=== PATIENT | female | born 1995 | race Caucasian/White ===

== ENCOUNTER 2019-11-11 14:14 | Emergency (ER) | payer SELFPAY ==
[2019-11-11 14:22] VITALS: BMI 32.1
--- NOTE | 2019-11-11 14:22 | PDOC ---
Rapid Medical Evaluation Chief Complaint: Pain, Acute Time Seen by Provider: 11/11/19 14:19 Medical Evaluation: Allergies Allergy/AdvReac Type Severity Reaction Status Date / Time sumatriptan Allergy Severe Difficulty Verified 11/11/19 13:01 Breathing 11/11/19 14:20 I have performed a brief in-person evaluation of this patient. The patient presents with a chief complaint of: RUQ pain x 3 days. No fevers/ + vomiting. Mom had Fay with her first preg. Pertinent physical exam findings: Gravid uterus. I have ordered the following: US ABd The patient will proceed to the ED for further evaluation. 11/11/19 14:23 Discharge Disposition - Diagnosis RUQ abdominal pain - Discharge Dispostion Condition at time of disposition: Stable - Referrals - Patient Instructions - Post Discharge Activity
--- NOTE | 2019-11-11 15:17 | PDOC ---
History of Present Illness - General Chief Complaint: Pain, Acute Stated Complaint: 32 WK OH/BACK PAIN Time Seen by Provider: 11/11/19 14:19 - History of Present Illness Initial Comments: HPI: 24yo currently 32 weeks with no reported PMH presenting with RUQ abdominal pain, nausea, and vomiting. Patient states she has never had pain like this before. The pain started on Friday, is described as "sharp," radiates to her back, and rated 9/10. Patient also reports nausea/vomiting that is slightly worse than her baseline from . Has had poor po intake today. Denies history of abdominal surgeries. 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 Denies chest pain but endorses pain in the RUQ when she takes a deep breath or moves in a certain way. Without urinary symptoms. Denies heavy alcohol drinking history or use of recreational substances. No fevers or chills. 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 ROS: Constitutional: no fever, no chills HEENT: no throat pain, no dysphagia Cardiovascular: no chest pain, no palpitations Respiratory: no cough, no shortness of breath Gastrointestinal: +abdominal pain, +nausea Genitourinary: no dysuria, no hematuria Musculoskeletal: no myalgia, no arthralgia Skin: no rash, no itching Neurologic: +headache, no weakness PE: General: Awake, alert, and fully oriented, in no acute distress Head: No signs of trauma Eyes: EOMI, sclera anicteric ENT: Moist mucus membranes Neck: Normal ROM, supple Lungs: Lungs clear, Normal breath sounds Cardio: Regular rhythm, S1 and S2 present Abdomen: Soft, gravid uterus. Tender to palpation in RUQ. +guarding, no rebound , no masses Extremities: Normal range of motion, Distal pulses present SKIN: Warm, Dry, normal turgor Neurologic: Cranial nerves II through XII grossly intact. Normal speech ED Course/MDM: DDX including but not limited to acute cholecystitis, gallstones, hepatitis, pancreatitis, UTI, nephrolithiasis Patient cleared from obstetrics standpoint with benign exam from labor and delivery department VS significant for tachycardia Labs US Tylenol Fluids 11/11/19 15:17 US as read by radiology: " EXAM#: TYPE/EXAM: RESULT: [id number] US/ABDOMEN US -LIMITED HISTORY PROVIDED: Right upper quadrant pain. Real time examination of the abdomen demonstrates the following: The gallbladder is normal in size and free of calculi with no evidence of intra or extrahepatic biliary duct dilatation. The liver is enlarged measuring 20.7 cm in craniocaudad dimension. It is mildly hyperechoic in texture consistent with diffuse fatty infiltration. No mass lesions are identified within the liver. Hepatopedal flow is documented within the main portal vein. The pancreas is normal in size and texture with no pancreatic masses identified. There is no evidence of hydronephrosis or acute abnormalities of the right kidney. There is no evidence of AAA. The IVC is patent. IMPRESSION: Hepatomegaly and mild diffuse fatty infiltration of the liver. Reported By: Terence John MD [id number] " 11/11/19 15:59 CBC WBC 9.2 K/mm3 (4.0-10.0) 11/11/19 16:34 RBC 4.05 M/mm3 (3.60-5.2) 11/11/19 16:34 Hgb 11.5 GM/dL (10.7-15.3) 11/11/19 16:34 Hct 34.2 % (32.4-45.2) 11/11/19 16:34 MCV 84.4 fl (80-96) 11/11/19 16:34 MCH 28.5 pg (25.7-33.7) 11/11/19 16:34 MCHC 33.7 g/dl (32.0-36.0) 11/11/19 16:34 RDW 14.7 % (11.6-15.6) 11/11/19 16:34 Plt Count 210 K/MM3 (134-434) 11/11/19 16:34 MPV 7.2 fl (7.5-11.1) L 11/11/19 16:34 Absolute Neuts (auto) 7.3 K/mm3 (1.5-8.0) 11/11/19 16:34 Neutrophils % 79.3 % (42.8-82.8) 11/11/19 16:34 Lymphocytes % 13.8 % (8-40) 11/11/19 16:34 Monocytes % 6.7 % (3.8-10.2) 11/11/19 16:34 Eosinophils % 0.1 % (0-4.5) 11/11/19 16:34 Basophils % 0.1 % (0-2.0) 11/11/19 16:34 Nucleated RBC % 0 % (0-0) 11/11/19 16:34 No leukocytosis or anemia CMP Sodium 139 mmol/L (136-145) 11/11/19 16:34 Potassium 4.0 mmol/L (3.5-5.1) 11/11/19 16:34 Chloride 106 mmol/L (98-107) 11/11/19 16:34 Carbon Dioxide 26 mmol/L (21-32) 11/11/19 16:34 Anion Gap 7 MMOL/L (8-16) L 11/11/19 16:34 BUN 7.5 mg/dL (7-18) 11/11/19 16:34 Creatinine 0.5 mg/dL (0.55-1.3) L 11/11/19 16:34 Est GFR (CKD-EPI)AfAm 159.23 11/11/19 16:34 Est GFR (CKD-EPI)NonAf 137.38 11/11/19 16:34 Random Glucose 83 mg/dL (74-106) 11/11/19 16:34 Calcium 8.3 mg/dL (8.5-10.1) L 11/11/19 16:34 Total Bilirubin 0.3 mg/dL (0.2-1) 11/11/19 16:34 AST 19 U/L (15-37) 11/11/19 16:34 ALT 29 U/L (13-61) 11/11/19 16:34 Alkaline Phosphatase 82 U/L (45-117) 11/11/19 16:34 Total Protein 6.1 g/dl (6.4-8.2) L 11/11/19 16:34 Albumin 2.8 g/dl (3.4-5.0) L 11/11/19 16:34 Lipase 112 U/L (73-393) 11/11/19 16:34 Electrolytes unremarkable Lipase normal No transaminitis Normal ALP Low suspicion for acute abdominal pathology HR improved to 99 Patient requesting to go home To follow up with job foreman and primary care physician Return precautions Stable for discharge 11/11/19 17:43 Past History - Past Medical History Allergies/Adverse Reactions: Allergies Allergy/AdvReac Type Severity Reaction Status Date / Time sumatriptan Allergy Severe Difficulty Verified 11/11/19 14:22 Breathing Home Medications: Ambulatory Orders Vitamins (Sjr) - 1 tab PO DAILY 09/07/19 Acetaminophen [Tylenol .Extra-Strength -] 1 tab PO PRN 11/11/19 COPD: No - Reproductive History Is Patient Now?: Yes (#): 2 Para: 1 Cervical CA: No Dysfunctional Uterine Bleeding: No Ectopic : No Endometrial CA: No Polycystic Ovaries: No Therapeutic (s) & number: No Tubal Ligation: No - Psycho Social/Smoking Cessation Hx Smoking History: Never smoked *Physical Exam - Vital Signs Last Vital Signs Temp Pulse Resp BP Pulse Ox 98.3 F 113 H 18 129/69 98 11/11/19 14:19 11/11/19 14:19 11/11/19 14:19 11/11/19 14:19 11/11/19 14:19 ED Treatment Course - LABORATORY CBC & Chemistry Diagram: 11/11/19 16:34 11/11/19 16:34 Discharge - Discharge Information Problems reviewed: Yes Clinical Impression/Diagnosis: RUQ abdominal pain, Fatty liver Condition: Stable Disposition: HOME - Follow up/Referral - Patient Discharge Instructions Patient Printed Discharge Instructions: DI for Abdominal Pain-Adult Additional Instructions: You were seen in the Emergency Department for abdominal pain during . Lab work was within normal limits. Ultrasound did not show acute pathology, but did show an enlarged liver. Follow-up with your primary care provider within 72 hours to discuss this ED visit and to further evaluate your symptoms. Call today or tomorrow morning and make an appointment. Your workup is not complete until you do so. Follow-up with your job foreman provider at your next appointment. You can take tylenol as needed for pain. Follow the instructions on the medication bottle. Eat and hydrate throughout the day to prevent dehydration and low blood sugar levels. Immediate medical attention is required if you develop: worsening pain, high fevers, persistent nausea, vomiting, or any new or concerning symptoms. If you think you are having an emergency, call for emergency medical services or present to the emergency department right away. - Post Discharge Activity
[2019-11-11] MEDS ORDERED: ACETAMINOPHEN 325 MG TABLET (FP) PO ONE (15:53)
[2019-11-11] MEDS ORDERED: SODIUM CHLORIDE 1,000 ML IV STA (15:54)
[2019-11-11] MEDS ORDERED: ACETAMINOPHEN 325 MG TABLET (FP) ONE (16:23)
[2019-11-11 16:53] LABS: BASO % 0.1 % (0-2.0); EOS % 0.1 % (0-4.5); HEMATOCRIT 34.2 % (32.4-45.2); HEMOGLOBIN 11.5 GM/dL (10.7-15.3); LYMPH % 13.8 % (8-40); MCH 28.5 pg (25.7-33.7); MCHC 33.7 g/dl (32.0-36.0); MEAN CELL VOLUME 84.4 fl (80-96); MEAN PLT VOLUME 7.2 fl (7.5-11.1); MONO % 6.7 % (3.8-10.2); NEUT % 79.3 % (42.8-82.8); PLATELET COUNT 210 K/MM3 (134-434); RBC 4.05 M/mm3 (3.60-5.2); RDW 14.7 % (11.6-15.6); WHITE BLOOD COUNT 9.2 K/mm3 (4.0-10.0)
[2019-11-11 16:55] LABS: PH,URINE 7.5 (5.0-8.0); URINE APPEARANCE CLEAR; URINE BILIRUBIN NEGATIVE (NEGATIVE); URINE COLOR YELLOW; URINE GLUCOSE (UA) NEGATIVE (NEGATIVE); URINE KETONE NEGATIVE (NEGATIVE); URINE LEUK ESTERASE NEGATIVE (NEGATIVE); URINE NITRITE NEGATIVE (NEGATIVE); URINE PROTEIN NEGATIVE (NEGATIVE)
--- NOTE | 2019-11-11 17:21 | PDOC ---
Documentation entered by Anastasia Mccoy SCRIBE, acting as scribe for Yohannes Rendon MD. Yohannes Rendon MD: This documentation has been prepared by the scribe, Anastasia Mccoy SCRIBE, under my direction and personally reviewed by me in its entirety. I confirm that the documentation accurately reflects all work, treatment, procedures, and medical decision making performed by me. Attending Attestation - Resident Resident Name: Diane Berry - ED Attending Attestation I have performed the following: I have examined & evaluated the patient, The case was reviewed & discussed with the resident, I agree w/resident's findings & plan, Exceptions are as noted - HPI HPI: 11/11/19 16:19 11/11/19 17:09 The patient is a 24-year-old female, currently 32 weeks , with no reported past medical history who presents to the emergency department with right upper quadrant pain associated with nausea and vomiting. The patient reports the pain has been ongoing since Friday that worsened yesterday. The patient reports she had an onset of nausea and vomiting yesterday, nonbloody or nonbilious, denies vomiting today. The patient reports the RUQ pain is aggravated with coughing, movement, pressure, and deep breathing. The patient reports with deep breathing she feels the pain radiating to the back. The patient reports when walking, she has to stop to catch a breath. Denies relief with Tylenol. Denies any strenuous activities or trauma. - Physicial Exam PE: 11/11/19 17:10 GENERAL: The patient is awake, alert, and fully oriented, Nontoxic - in no acute distress. HEAD: Normocephalic, atraumatic. LUNGS: Breath sounds equal, clear to auscultation bilaterally. No wheezes, no rhonchi, no rales. HEART: Regular rate and rhythm, normal S1 and S2 without murmur, rub or gallop. ABDOMEN: Mild right upper quadrant tenderness, no rebound/guarding, no rashes, no cva tenderness, gravid abdomen EXTREMITIES: Normal range of motion, trace symmetric edema., Negative Homans sign NEUROLOGICAL: No facial assymetry, Normal speech, PSYCH: Normal mood, normal affect. SKIN: Warm, Dry, normal turgor, - Medical Decision Making 12/19/19 17:19 Differential for the patient's abdominal pain includes possible gallstones, cholecystitis, muscular strain The patient's pain is reproducible with movement The patient's lab work was unremarkable the patient's ultrasound was negative for gallstones or signs of cholecystitis The patient is slightly tachycardic we will give the patient fluid hydration. Tylenol for her discomfort Anticipate discharge with PMD follow-up, return precautions were discussed 11/11/19 18:[address] head is negative The patient's x-rays do not reveal acute fractures Patient is feeling improved will discharge with outpatient follow-up
[2019-11-11 17:22] LABS: ALBUMIN 2.8 g/dl (3.4-5.0); BILIRUBIN,TOTAL 0.3 mg/dL (0.2-1); BLOOD UREA NITROGEN 7.5 mg/dL (7-18); CALCIUM 8.3 mg/dL (8.5-10.1); CREATININE 0.5 mg/dL (0.55-1.3); TOT PROT 6.1 g/dl (6.4-8.2)
[2019-11-11 17:43] VITALS: BP 113/60; PULSE 99; TEMP 98.1
== END 2019-11-11 17:43 | disposition home or self-care (01) ==
LOC: JER 14:14
PROC: 3E0337Z Introduction of Electrolytic and Water Balance Substance into Peripheral Vein, Percutaneous Approach (ICD-10-PCS; principal; 2019-11-11)
DX: O26.893 Other specified pregnancy related conditions, third trimester (principal); R10.11 Right upper quadrant pain; Z3A.32 32 weeks gestation of pregnancy
CPT/HCPCS: 36415; 76705-TC; 80053; 81003; 83690; 85025; 87086; 99283-25; J7030

== ENCOUNTER 2021-02-25 15:17 | Emergency (ER) | payer OTHER ==
[2021-02-25 15:40] VITALS: BP 131/73; PULSE 87; TEMP 97.8; BMI 32.1
== END 2021-02-25 16:26 | disposition home or self-care (01) ==
LOC: JERFT 15:17
DX: R09.81 Nasal congestion (principal)
CPT/HCPCS: 99281-25

== ENCOUNTER 2021-06-20 02:34 | Emergency (ER) | payer OTHER ==
[2021-06-20 03:18] VITALS: BP 128/73; PULSE 81; TEMP 98.3; BMI 32.7
[2021-06-20] MEDS ORDERED: MENTHOL/PHENOL 1 EACH UD MM PRN (04:09)
[2021-06-20] MEDS ORDERED: ACETAMINOPHEN 325 MG TABLET (FP) PO ONE (04:11)
[2021-06-20] MEDS ORDERED: ACETAMINOPHEN 325 MG TABLET (FP) ONE (04:17)
[2021-06-20] MEDS ORDERED: BENZOCAINE/MENTH/CETYLPYRD CL 1 EACH LOZENGE MM ONE (04:17)
[2021-06-20] MEDS ORDERED: DEXAMETHASONE SOD PHOSPHATE 10 MG/1 ML VIAL PO ONE (05:32)
[2021-06-20] MEDS ORDERED: DEXAMETHASONE SOD PHOSPHATE 10 MG/1 ML VIAL ONE (05:38)
== END 2021-06-20 05:57 | disposition home or self-care (01) ==
LOC: JER 02:34
DX: R05 Cough (principal); J02.9 Acute pharyngitis, unspecified
CPT/HCPCS: 36415; 71046-TC-FY; 86308; 87880; 99284-25; J1100

== ENCOUNTER 2021-06-23 03:22 | Emergency (ER) | payer OTHER ==
[2021-06-23 03:46] VITALS: PULSE 79; TEMP 98.1; BMI 32.2
[2021-06-23] MEDS ORDERED: diphenhydrAMINE HCL 25 MG CAPSULE (FP) PO ONE ×2 (04:15→04:33)
[2021-06-23] MEDS ORDERED: FLUTICASONE PROP 0.05% 16 GM NASAL SPRAY NS ONE (04:16)
[2021-06-23] MEDS ORDERED: IPRATROPIUM BR 0.02% 0.5 MG/2.5 ML VIAL.NEB. NEB ONE ×2 (04:26→04:34)
[2021-06-23] MEDS ORDERED: ACETAMINOPHEN 1000 MG/100 ML VIAL (NON FORMULARY) IVPB ONE (04:59)
[2021-06-23] MEDS ORDERED: METOCLOPRAMIDE HCL INJECTION 10 MG/2 ML VIAL IVPUSH ONE (04:59)
[2021-06-23] MEDS ORDERED: ACETAMINOPHEN INJECTION 100 ML IVPB ONE (05:15)
[2021-06-23] MEDS ORDERED: METOCLOPRAMIDE HCL INJECTION 10 MG/2 ML VIAL ONE (05:15)
[2021-06-23 05:54] VITALS: BP 126/88
== END 2021-06-23 05:56 | disposition home or self-care (01) ==
LOC: JER 03:22
PROC: 3E0F7GC Introduction of Other Therapeutic Substance into Respiratory Tract, Via Natural or Artificial Opening (ICD-10-PCS; principal; 2021-06-23)
PROC: 3E033NZ Introduction of Analgesics, Hypnotics, Sedatives into Peripheral Vein, Percutaneous Approach (ICD-10-PCS; 2021-06-23)
PROC: 3E033NZ Introduction of Analgesics, Hypnotics, Sedatives into Peripheral Vein, Percutaneous Approach (ICD-10-PCS; 2021-06-23)
DX: R05 Cough (principal)
CPT/HCPCS: 94640; 96375; 99284-25; C9803; J0131; U0003; U0005

== ENCOUNTER 2021-06-26 12:32 | Emergency (ER) | payer OTHER ==
[2021-06-26 12:51] VITALS: BP 120/73; PULSE 102; TEMP 98.4; BMI 32.1
[2021-06-26] MEDS ORDERED: ONDANSETRON 4 MG/2 ML VIAL IVPUSH ONE (13:38)
[2021-06-26] MEDS ORDERED: SODIUM CHLORIDE 0.9% 500 ML INFUS.BAG IV ONE (13:38)
[2021-06-26] MEDS ORDERED: FAMOTIDINE 20 MG TABLET PO ONE (13:38)
[2021-06-26] MEDS ORDERED: FAMOTIDINE 20 MG/50 ML IVPB 20 MG/50 ML MG IVPB ONE ×2 (14:11→14:49)
[2021-06-26] MEDS ORDERED: ONDANSETRON 4 MG/2 ML VIAL ONE (14:11)
[2021-06-26 14:20] LABS: BASO % 0.2 % (0-2.0); EOS % 1.4 % (0-4.5); HEMATOCRIT 41.4 % (32.4-45.2); HEMOGLOBIN 14.3 GM/dL (10.7-15.3); LYMPH % 11.1 % (8-40); MCHC 34.5 g/dl (32.0-36.0); MEAN CELL VOLUME 83.9 fl (80-96); MEAN PLT VOLUME 7.3 fl (7.5-11.1); MONO % 9.1 % (3.8-10.2); NEUT % 78.2 % (42.8-82.8); PLATELET COUNT 227 10^3/uL (134-434); RBC 4.93 M/mm3 (3.60-5.2); RDW 13.4 % (11.6-15.6); WHITE BLOOD COUNT 9.1 K/mm3 (4.0-10.0)
[2021-06-26 14:42] LABS: ALBUMIN 3.6 g/dl (3.4-5.0); CALCIUM 7.8 mg/dL (8.5-10.1)
[2021-06-26 14:43] LABS: BLOOD UREA NITROGEN 9.4 mg/dL (7-18)
[2021-06-26 14:46] LABS: CREATININE 0.6 mg/dL (0.55-1.3)
[2021-06-26 14:47] LABS: BILIRUBIN,TOTAL 0.7 mg/dL (0.2-1); TOT PROT 7.3 g/dl (6.4-8.2)
[2021-06-26 17:58] LABS: EPI CELLS 20 /uL (0-25.1); HYALINE CASTS 4 /uL (0-3.1); PH,URINE 5.5 (5.0-8.0); URINE APPEARANCE CLOUDY; URINE BACTERIA 1147 /uL (0-1359); URINE BILIRUBIN 1+ (NEGATIVE); URINE COLOR DK YELLOW; URINE GLUCOSE (UA) NEGATIVE (NEGATIVE); URINE KETONE NEGATIVE (NEGATIVE); URINE LEUK ESTERASE NEGATIVE (NEGATIVE); URINE NITRITE NEGATIVE (NEGATIVE); URINE PROTEIN 1+ (NEGATIVE); URINE WBC 19 /uL (0-25.8)
[2021-06-26 18:45] LABS: URINE RBC 23.5 /uL (0-23.9)
== END 2021-06-26 17:19 | disposition home or self-care (01) ==
LOC: JER 12:32
PROC: 3E033GC Introduction of Other Therapeutic Substance into Peripheral Vein, Percutaneous Approach (ICD-10-PCS; principal; 2021-06-26)
PROC: 3E033GC Introduction of Other Therapeutic Substance into Peripheral Vein, Percutaneous Approach (ICD-10-PCS; 2021-06-26)
DX: R19.7 Diarrhea, unspecified (principal)
CPT/HCPCS: 36415; 80053; 81003; 83690; 85025; 96374; 96375; 99284-25

== ENCOUNTER 2023-10-06 11:55 | Emergency (ER) | payer OTHER ==
[2023-10-06 12:08] VITALS: BMI 29.7
[2023-10-06] MEDS ORDERED: IBUPROFEN 100 MG/5 ML UNIT DOSE CUPS PO ONE (13:13)
[2023-10-06] MEDS ORDERED: IBUPROFEN 100 MG/5 ML UNIT DOSE CUPS ONE (13:15)
[2023-10-06] MEDS ORDERED: DEXAMETHASONE SOD PHOSPHATE 10 MG/1 ML VIAL ONE (13:24)
[2023-10-06] MEDS ORDERED: DEXAMETHASONE SOD PHOSPHATE 10 MG/1 ML VIAL IM ONE (13:24)
[2023-10-06 13:26] LABS: THROAT:GRP A STREP NOT DETECTED (NOTDETECTED)
[2023-10-06] MEDS: DEXAMETHASONE LIQUID 0.5 MG/5 ML PO ONE ×2 (13:28→13:33)
[2023-10-06 13:38] VITALS: BP 133/76; RESP 18; TEMP 99.8
[2023-10-06] MEDS ORDERED: PENICILLIN G BENZATHINE 1,200,000 UNIT/2 ML PFS IM ONE (14:15)
[2023-10-06 15:28] VITALS: PULSE 95
== END 2023-10-06 15:28 | disposition home or self-care (01) ==
LOC: JERFT 11:55
PROC: 3E023GC Introduction of Other Therapeutic Substance into Muscle, Percutaneous Approach (ICD-10-PCS; principal; 2023-10-06)
PROC: 3E02329 Introduction of Other Anti-infective into Muscle, Percutaneous Approach (ICD-10-PCS; 2023-10-06)
DX: R50.9 Fever, unspecified (principal); J02.9 Acute pharyngitis, unspecified; Z20.822 Contact with and (suspected) exposure to COVID-19
CPT/HCPCS: 0241U-QW; 87651; 99284-25; J1100

== ENCOUNTER 2023-12-01 12:01 | Emergency (ER) | payer OTHER ==
[2023-12-01 12:11] VITALS: BP 122/60; PULSE 89; RESP 20; TEMP 98.6; BMI 31.0
== END 2023-12-01 14:09 | disposition home or self-care (01) ==
LOC: JERFT 12:01
DX: J06.9 Acute upper respiratory infection, unspecified (principal); B34.9 Viral infection, unspecified; R05.9 Cough, unspecified; R09.81 Nasal congestion; M79.10 Myalgia, unspecified site; R50.9 Fever, unspecified
CPT/HCPCS: 99283-25